=== PATIENT | male | born 1975 | race Caucasian/White ===

== ENCOUNTER → 2022-10-02 10:27 | Outpatient (BNVA) | payer OTHER, SELFPAY | PROVIDERS: Family Provider Nurse Practitioner Family; PCP Family Medicine; Visit Provider Family Medicine Adult Medicine | DX: Z02.6 Encounter for examination for insurance purposes (principal); S69.91XA Unspecified injury of right wrist, hand and finger(s), initial encounter; W23.0XXA Caught, crushed, jammed, or pinched between moving objects, initial encounter; Y99.0 Civilian activity done for income or pay; K21.9 Gastro-esophageal reflux disease without esophagitis; Z78.9 Other specified health status | CPT/HCPCS: 73130; 80307 ==

== ENCOUNTER 2024-08-28 11:36 | Outpatient (CLI) | payer BC, SELFPAY ==
[2024-08-28 12:17] LABS: Basophils # 0.1 10^3/uL (0.0-0.1); Basophils % 0.8 %; Eosinophils # 0.1 10^3/uL (0.0-0.8); Eosinophils % 1.2 %; Hematocrit 45.6 % (37-53); Lymphocytes # 2.7 10^3/uL (0.8-4.8); Lymphocytes % 33.1 %; Mean Corpuscular HGB Conc 34.9 g/dL (30-55); Mean Corpuscular Hemoglobin 30.6 pg (27-33); Mean Corpuscular Volume 87.7 fl (82-101); Mean Platelet Volume 9.7 fL (7.4-10.4); Monocytes # 0.6 10^3/uL (0.2-0.9); Monocytes % 7.6 %; Neutrophils # 4.65 10^3/uL (1.8-7.7); Neutrophils % 56.2 %; Nucleated Red Blood Cells % 0 %; Platelet Count 249 10^3/cmm (157-399); Red Cell Distribution Width 11.6 % (12.1-15.1); White Blood Count 8.28 10^3/uL (3.29-11.43)
[2024-08-28 12:56] LABS: Alanine Aminotransferase 53 U/L (0-41); Albumin Level 4.4 g/dL (3.5-5.2); Alkaline Phosphatase 87 U/L (40-130); Anion Gap 15.9 (5-19); Aspartate Amino Transferase 30 U/L (0-40); Blood Urea Nitrogen 11 mg/dL (6-20); Calcium 9.2 mg/dL (8.5-10.5); Carbon Dioxide 24 mmol/L (22-29); Chloride 102 mmol/L (98-107); Chol HDL Ratio 5.08 mg/dL (1.0-5.00); Cholesterol 203 mg/dL (0-200); Globulin 2.5 g/dL (1.3-4.6); Glomerular Filtration Rate 80.1 mL/min (90-130); Glucose 91 mg/dL (65-115); HDL Cholesterol 40 mg/dL (60-100); LDL Cholesterol Calculated 144 mg/dL (50-129); Osmolality Calculated 285 mOsm/kg (285-295); Potassium 3.9 mmol/L (3.5-5.1); Sodium 138 mmol/L (136-145); Thyroid Stimulating Hormone 3.73 uIU/mL (0.27-4.20); Total Bilirubin 0.6 mg/dL (0.15-1.2); Total Protein 6.9 g/dL (6.6-8.7); Triglycerides 95 mg/dL (0-150)
== END 2024-08-28 11:37 | disposition home or self-care (01) ==
LOC: LAB 11:37
PROVIDERS: Family Provider Nurse Practitioner Family; PCP Family Medicine; Visit Provider Family Medicine
DX: Z00.00 Encounter for general adult medical examination without abnormal findings (principal)
CPT/HCPCS: 36415; 80053; 80061; 84443; 85025

== ENCOUNTER 2024-10-12 12:23 | Outpatient (CLI) | payer BC, SELFPAY | END 2024-10-12 12:24 | disposition home or self-care (01) | LOC: SLEEP 12:24 | PROVIDERS: Family Provider Nurse Practitioner Family; PCP Family Medicine; Visit Provider Family Medicine | DX: G47.33 Obstructive sleep apnea (adult) (pediatric) (principal); G47.36 Sleep related hypoventilation in conditions classified elsewhere | CPT/HCPCS: G0399 ==

== ENCOUNTER 2025-08-16 12:43 | Outpatient (CLI) | payer BC, SELFPAY ==
--- NOTE | 2025-08-16 13:00 | MR_ITS ---
WS: [id number] MRI CERVICAL SPINE NONCONTRAST TECHNIQUE: Sagittal T1, T2 and STIR imaging. Axial T2, gradient, and fiesta imaging. CLINICAL INFORMATION: cervical radiculopathy C6 COMPARISON: None. FINDINGS: Straightening of the normal cervical lordosis. Mild disc bulging worse at C3-4, C4-5, C5-C6 and C6-C7. C2-C3: Mild LEFT bony foraminal narrowing. Mild facet arthropathy. C3-C4: Broad-based central and RIGHT paracentral disc osteophyte protrusion with indentation on the cervical cord. Mild central canal stenosis. Mild to moderate bilateral bony foraminal narrowing worse on the RIGHT. C4-C5: Central disc protrusion with slight indentation of the cervical cord. Moderate RIGHT and mild LEFT foraminal narrowing. Mild facet arthropathy. Mild central canal stenosis. C5-C6: RIGHT paracentral disc osteophyte protrusion with slight indentation on the cervical cord. Mild central canal stenosis. Severe RIGHT and mild LEFT bony foraminal narrowing. Moderate facet arthropathy. C6-C7: Shallow central disc protrusion. Mild central canal stenosis. Moderate LEFT and mild RIGHT foraminal narrowing. C7-T1: Shallow LEFT foraminal protrusion with impingement on the exiting LEFT C8 nerve root with mild LEFT foraminal narrowing. Spinal canal and RIGHT foramen are patent Visualized brain stem structures: Normal. Prevertebral soft tissues: Normal. Incidental slightly low-lying cerebellar tonsils. MR/MR cervical spin wo con* [id number] IMPRESSION: 1. Central and RIGHT paracentral disc osteophyte protrusion C3-4 with slight i ndentation on the central and RIGHT paracentral cervical cord. Mild central can al stenosis. 2. Shallow central protrusion C4-5 with mild central canal stenosis. Slight co ntact of the cervical cord. 3. Shallow central disc osteophyte protrusion C5-6 and C6-7 with mild central canal stenosis. 4. Moderate RIGHT C4-5, severe RIGHT C5-6, and moderate LEFT greater than RIGH T C6-7 bony foraminal narrowing. Mild LEFT C7-T1 foraminal narrowing. 5. LEFT proximal foraminal protrusion C7-T1 impinges the exiting LEFT C8 nerve root. 6. Mild LEFT C5-C6 foraminal narrowing.
== END 2025-08-16 12:44 | disposition home or self-care (01) ==
PROVIDERS: PCP Family Medicine; Visit Provider Family Medicine
DX: M54.12 Radiculopathy, cervical region (principal); M48.02 Spinal stenosis, cervical region; M50.21 Other cervical disc displacement, high cervical region; M25.78 Osteophyte, vertebrae; M50.221 Other cervical disc displacement at C4-C5 level; M50.222 Other cervical disc displacement at C5-C6 level; M50.223 Other cervical disc displacement at C6-C7 level
CPT/HCPCS: 72141